=== PATIENT | female | born 1960 ===

== ENCOUNTER 2018-01-06 11:54 | Outpatient (CLI) | payer BC | END 2018-01-06 11:55 | disposition home or self-care (01) | LOC: BICMAMMO 11:54 | PROVIDERS: ATTEND Obstetrics & Gynecology | DX: Z12.31 Encounter for screening mammogram for malignant neoplasm of breast (principal) | CPT/HCPCS: 77063; 77067 ==

== ENCOUNTER 2018-12-22 11:25 | Outpatient (CLI) | payer BC ==
--- NOTE | 2018-12-22 14:23 | ULT ---
THYROID ULTRASOUND: Date: 12/22/18 COMPARISON: None. HISTORY: Multinodular goiter. TECHNIQUE: Multiplanar Briones scale and color Doppler images were obtained in a thyroid ultrasound. FINDINGS: The thyroid is fairly homogeneous in appearance. There is a questionable hypoechoic region measuring 3.0 mm in size in the left thyroid lobe that could potentially represent a nodule. No other nodules a re seen. The thyroid lobe is measured at 3.5 and 2.7 cm in length on the right and left, respectively . IMPRESSION: No significant thyroid abnormality. POS: [facility]
== END 2018-12-22 11:26 | disposition home or self-care (01) ==
LOC: BICULT 11:25
PROVIDERS: ATTEND Internal Medicine Endocrinology, Diabetes & Metabolism
DX: E04.2 Nontoxic multinodular goiter (principal)
CPT/HCPCS: 76536